=== PATIENT | female | born 1995 | race Caucasian/White ===

== ENCOUNTER 2022-10-07 11:43 | Observation (INO) ==
[~2022-10-07 11:43] MED LIST: Buffered Lidocaine 1% SYRIN 1 ml INTRADERM ONE; Lactated Ringers 1000 ml BAG 1,000 ML IV SCH; Naloxone 0.4 mg VIAL 0.4 mg/ml 1 ml VIAL IV PRN; fentaNYL 100 mcg/2 ml 50 MCG/ML VIAL IV PRN
[2022-10-07 12:21] LABS: ABS Eosinophils 0.3 10^3/ul (0-0.6); ABS Lymphocytes 1.6 10^3/ul (1.0-4.8); ABS Monocytes 0.3 10^3/ul (0-0.8); ABS Neutrophils 5.2 10^3/ul (1.5-7.7); Eosinophil % 3.9 %; Hematocrit 38 % (35-47); Hemoglobin 12.5 g/dL (12.0-16.0); Lymphocyte % 21.3 %; Mean Corpuscular HGB Conc 33 g/dL (31-36); Mean Corpuscular Hemoglobin 28 pg (27-31); Mean Corpuscular Volume 84 fL (80-97); Nucleated Red Blood Cells % 0.1; Platelet Count 270 10^3/uL (150-450); Red Blood Count 4.49 10^6 /uL (3.70-4.87); Red Cell Distribution Width 15 % (10-15); White Blood Count 7.4 10^3/uL (3.5-10.8)
[2022-10-07] MEDS ORDERED: ceFAZolin *3* GM in NS PREMIX 3 GM/100 ML BAG IV ONE (12:50)
[2022-10-07 12:59] LABS: Calcium 9.2 mg/dL (8.6-10.3); Creatinine, Serum 0.76 mg/dL (0.51-0.95); Potassium 4.2 mmol/L (3.5-5.0); eGFR CKD-EPI 109.4 (>60)
[2022-10-07] MEDS ORDERED: Midazolam 2 mg/2 ml VIAL 1 mg/ml 2 ml VIAL (2 mg) ONE ×2 (13:14→13:44)
[2022-10-07] MEDS ORDERED: Dexamethasone IV 4 MG/ML VIAL 1 ml VIAL ONE ×2 (13:15→14:49)
[2022-10-07] MEDS ORDERED: Bupivacaine 0.5% SDV PF 30ML VIAL ONE ×2 (13:17→13:48)
[2022-10-07] MEDS ORDERED: Lidocaine 1% MPF 5 ML VIAL ONE (13:18)
[2022-10-07] MEDS ORDERED: fentaNYL 100 mcg/2 ml 50 MCG/ML VIAL ONE ×2 (13:44→17:42)
[2022-10-07] MEDS ORDERED: Propofol 10 MG/ML 20 ML BTL ONE (13:44)
[2022-10-07] MEDS ORDERED: Lidocaine 2% PF 5 ML VIAL ONE (13:44)
[2022-10-07] MEDS ORDERED: Rocuronium 50 mg VIAL 10 mg/ml 5 ml VIAL (50 mg) ONE (13:55)
[2022-10-07] MEDS ORDERED: Bupivacaine 0.25% SDV 30 ML ONE (13:57)
[2022-10-07] MEDS ORDERED: Succinylcholine 200 mg VIAL 20 mg/ml 10 ml VIAL (200 mg) ONE (14:19)
[2022-10-07] MEDS ORDERED: Acetaminophen IV 1 GM/100ML 1,000 MG/100 ML BAG IV ONE (14:49)
[2022-10-07] MEDS ORDERED: Ondansetron 4 mg VIAL 2 MG/ML 2 ml VIAL ONE (14:49)
[2022-10-07] MEDS ORDERED: Phenylephrine 40 mcg/mL 10mL (400mcg) SYRINGE ONE (15:42)
[2022-10-07] MEDS ORDERED: ceFAZolin 1 GM ADVAN 1 GM ADDV.VIAL IVPB ONE (18:31)
[2022-10-07] MEDS ORDERED: Lactulose 30 ml UDC PO PRN (19:44)
[2022-10-07] MEDS ORDERED: Ondansetron 4 mg VIAL 2 MG/ML 2 ml VIAL IV PRN (19:44)
[2022-10-07] MEDS ORDERED: Ondansetron ODT 4 mg TAB 4 MG TAB PO PRN (19:44)
[2022-10-07] MEDS ORDERED: Magnesium Hydroxide LIQ 30 ML UDC PO PRN (19:44)
[2022-10-07] MEDS ORDERED: Scopolamine 1 mg/72hr PATCH ONE (19:47)
[2022-10-07] MEDS ORDERED: Lactated Ringers 1000 ml BAG 1,000 ML IV SCH (20:00)
[2022-10-07] MEDS ORDERED: Scopolamine 1 mg/72hr PATCH TRANSDERM SCH (20:00)
[2022-10-07] MEDS: Magnesium Hydroxide LIQ 30 ML UDC PO SCH (23:13)
[2022-10-08] MEDS: ceFAZolin 1 GM ADVAN 1 GM in NS 0.9% 50 ML 50 ML IVPB SCH ×2 (03:08→10:04)
[2022-10-08 06:01] LABS: Hematocrit 32 % (35-47); Hemoglobin 11.1 g/dL (12.0-16.0); Mean Platelet Volume 8.2 fL (7.4-10.4); Platelet Count 253 10^3/uL (150-450)
[2022-10-08 06:48] LABS: Calcium 8.4 mg/dL (8.6-10.3); Creatinine, Serum 0.73 mg/dL (0.51-0.95); Potassium 4.3 mmol/L (3.5-5.0); eGFR CKD-EPI 114.8 (>60)
[2022-10-08 07:37] VITALS: BP 154/84
[2022-10-08] MEDS: Magnesium Hydroxide LIQ 30 ML UDC PO SCH (08:50)
[2022-10-08] MEDS ORDERED: Vitamin THERAPEUTIC TAB PO SCH (09:00)
== END 2022-10-08 11:00 | disposition home or self-care (01) ==
LOC: OR 11:43 → SSU 11:43
PROVIDERS: ADMIT Orthopaedic Surgery Hand Surgery; ATTEND Orthopaedic Surgery Hand Surgery